=== PATIENT | male | born 1980 | race Caucasian/White ===

== ENCOUNTER 2024-09-06 | Emergency (ER) | payer BC ==
[2024-09-06] MEDS ORDERED: hydrALAZINE 20 MG/ML VIAL ONE (00:50)
[2024-09-06 01:06] LABS: #Basophils 0.09 10x3/uL (0.0-0.2); #Eosinophils 0.14 10x3/uL (0.0-0.7); #Monocytes 0.99 10x3/uL (0.11-0.59); #Neutrophils 7.94 10x3/uL (1.40-6.50); %Basophils 0.8 % (0.0-1.0); %Eosinophils 1.2 % (0.0-10.0); %Lymphocytes 21.7 % (21.0-51.0); %Monocytes 8.4 % (0.0-10.0); %Neutrophils 67.6 % (42.0-75.0); Hematocrit 46.1 % (42.0-52.0); Hemoglobin 15.5 g/dL (14.0-18.0); Mean Corpuscular HGB CONC 33.6 g/dL (32.0-36.0); Mean Corpuscular Hemoglobin 30.1 pg (27.0-31.0); Mean Corpuscular Volume 89.5 fL (78.0-98.0); Mean Platelet Volume 10.5 fL (7.4-10.4); Platelet Count 239 10x3/uL (130-400); RBC Distribution Width 13.3 % (11.5-14.5); Red Blood Cell (RBC) Count 5.15 mill/uL (4.70-6.10); White Blood Cell (WBC) Count 11.74 10x3/uL (4.8-10.8)
[2024-09-06] MEDS ORDERED: Oxymetazoline HCl 0.05% (30 ML BOT) ONE (01:31)
[2024-09-06 01:34] LABS: ALT (SGPT) 17 U/L (Less than 45); AST (SGOT) 26 U/L (11-34); Alkaline Phosphatase 66 U/L (40-110); Anion Gap 11 mmol/L (10-20); BUN (Urea Nitrogen) 23 mg/dL (8.9-20.6); Bilirubin, Total 0.4 mg/dL (0.3-1.2); Calc. Creatinine Clearance 0 mL/min (70-130); Calcium 9.4 mg/dL (7.8-10.44); Carbon Dioxide 25 mmol/L (22-29); Chloride 108 mmol/L (98-107); Estimated GFR 78; Globulin 3.5 g/dL (2.4-3.5); Glucose 98 mg/dL (70-105); Potassium 4.1 mmol/L (3.5-5.1); Protein, Total 7.5 g/dL (6.0-8.3); Sodium 140 mmol/L (136-145)
== END 2024-09-06 02:36 | disposition home or self-care (01) ==
LOC: ERS
DX: R04.0 Epistaxis (principal); I11.0 Hypertensive heart disease with heart failure; I50.9 Heart failure, unspecified; F17.290 Nicotine dependence, other tobacco product, uncomplicated
CPT/HCPCS: 80053; 85025; 96374; J0360

== ENCOUNTER 2025-03-02 21:49 | Inpatient (IN) | payer BC ==
[2025-03-02 22:46] LABS: #Basophils 0.08 10x3/uL (0.0-0.2); #Eosinophils 0.23 10x3/uL (0.0-0.7); #Monocytes 1.33 10x3/uL (0.11-0.59); #Neutrophils 7.70 10x3/uL (1.40-6.50); %Basophils 0.6 % (0.0-1.0); %Eosinophils 1.8 % (0.0-10.0); %Lymphocytes 26.4 % (21.0-51.0); %Monocytes 10.4 % (0.0-10.0); %Neutrophils 60.2 % (42.0-75.0); Hematocrit 47.4 % (42.0-52.0); Hemoglobin 16.0 g/dL (14.0-18.0); Mean Corpuscular Hemoglobin 28.7 pg (27.0-31.0); Mean Corpuscular Volume 85.1 fL (78.0-98.0); Platelet Count 261 10x3/uL (130-400); Red Blood Cell (RBC) Count 5.57 mill/uL (4.70-6.10); White Blood Cell (WBC) Count 12.80 10x3/uL (4.8-10.8)
[2025-03-02] MEDS ORDERED: niCARdipine 25 MG/10 ML SDV ONE (22:58)
[2025-03-02 23:00] LABS: Acetaminophen Less than 10 mcg/mL (Less than 10); Salicylate Less than 8.0 mg/dL (Less than 8.0)
[2025-03-02 23:01] LABS: ALT (SGPT) 31 U/L (Less than 45); AST (SGOT) 31 U/L (11-34); Albumin 3.6 g/dL (3.1-4.5); Alkaline Phosphatase 55 U/L (40-110); Anion Gap 17 mmol/L (10-20); BUN (Urea Nitrogen) 15 mg/dL (8.9-20.6); Bilirubin, Total 0.6 mg/dL (0.3-1.2); Calc. Creatinine Clearance 0 mL/min (70-130); Calcium 9.1 mg/dL (7.8-10.44); Carbon Dioxide 24 mmol/L (22-29); Chloride 108 mmol/L (98-107); Globulin 3.4 g/dL (2.4-3.5); Glucose 100 mg/dL (70-105); Potassium 4.1 mmol/L (3.5-5.1); Sodium 145 mmol/L (136-145)
[2025-03-03] MEDS ORDERED: niCARdipine 25 MG/10 ML SDV ONE (01:45)
[2025-03-03] MEDS ORDERED: niCARdipine 25 MG in Sodium Chloride 0.9% 250 ML 250 ML IVPB SCH (02:30)
[2025-03-03 05:10] VITALS: BMI 40.8
[2025-03-03] MEDS: Furosemide 40 MG (4 mL) VIAL SLOW IVP SCH (05:39)
[2025-03-03 07:53] LABS: Influenza A by NAA DETECTED (NotDetected); Influenza B by NAA Not Detected (NotDetected); RSV by NAA Not Detected (NotDetected); SARS-CoV-2 NAA Rapid Test Not Detected (NotDetected)
[2025-03-03] MEDS: Carvedilol 6.25 MG TAB PO SCH (09:32)
[2025-03-03] MEDS: Mupirocin 1 GM TUBE TP SCH (09:33)
[2025-03-03] MEDS: Sacubitril 24MG/Valsartan 26 MG TAB PO SCH (09:33)
[2025-03-03] MEDS: Enoxaparin 40 MG (0.4 mL) SYRINGE SC SCH (09:33)
[2025-03-03] MEDS: Carvedilol 25 MG TAB PO SCH (16:36)
[2025-03-03] MEDS: Spironolactone 25 MG TAB PO SCH (20:56)
[2025-03-03] MEDS: Benzonatate 100 MG CAP PO PRN (20:56)
[2025-03-03] MEDS: Melatonin 3 MG TAB PO SCH (23:29)
[2025-03-04 04:22] LABS: #Basophils 0.09 10x3/uL (0.0-0.2); #Eosinophils 0.29 10x3/uL (0.0-0.7); #Monocytes 2.03 10x3/uL (0.11-0.59); #Neutrophils 10.80 10x3/uL (1.40-6.50); %Basophils 0.5 % (0.0-1.0); %Eosinophils 1.7 % (0.0-10.0); %Lymphocytes 21.6 % (21.0-51.0); %Monocytes 11.9 % (0.0-10.0); %Neutrophils 63.2 % (42.0-75.0); Hematocrit 49.4 % (42.0-52.0); Hemoglobin 16.9 g/dL (14.0-18.0); Mean Corpuscular Hemoglobin 29.3 pg (27.0-31.0); Mean Corpuscular Volume 85.8 fL (78.0-98.0); Platelet Count 328 10x3/uL (130-400); Red Blood Cell (RBC) Count 5.76 mill/uL (4.70-6.10); White Blood Cell (WBC) Count 17.08 10x3/uL (4.8-10.8)
[2025-03-04 04:46] LABS: Anion Gap 17 mmol/L (10-20); BUN (Urea Nitrogen) 25 mg/dL (8.9-20.6); Calc. Creatinine Clearance 138 mL/min (70-130); Calcium 9.5 mg/dL (7.8-10.44); Carbon Dioxide 27 mmol/L (22-29); Cardiac Risk 4.9 (Less than 4.5); Chloride 102 mmol/L (98-107); Cholesterol 152 mg/dl (< 200 Desired); Glucose 99 mg/dL (70-105); HDL Cholesterol 31 mg/dL (>60 Neg Risk); LDL Cholesterol, Calculated 90 mg/dL; Potassium 3.8 mmol/L (3.5-5.1); Sodium 142 mmol/L (136-145); Triglycerides 153 mg/dL (Less than 150)
[2025-03-04 04:57] LABS: Free T4 (Free Thyroxine) 0.88 ng/dL (0.70-1.48); Thyroid Stimulating Hormone 0.3688 uIU/mL (0.35-4.94)
[2025-03-04] MEDS: Spironolactone 25 MG TAB PO SCH (09:03)
[2025-03-04] MEDS: Lisinopril 20 MG TAB PO SCH (21:17)
[2025-03-05 09:04] LABS: #Basophils 0.11 10x3/uL (0.0-0.2); #Eosinophils 0.14 10x3/uL (0.0-0.7); #Monocytes 1.60 10x3/uL (0.11-0.59); #Neutrophils 11.20 10x3/uL (1.40-6.50); %Basophils 0.7 % (0.0-1.0); %Eosinophils 0.9 % (0.0-10.0); %Lymphocytes 16.5 % (21.0-51.0); %Monocytes 10.0 % (0.0-10.0); %Neutrophils 70.3 % (42.0-75.0); Hematocrit 47.7 % (42.0-52.0); Hemoglobin 16.1 g/dL (14.0-18.0); Mean Corpuscular Hemoglobin 29.1 pg (27.0-31.0); Mean Corpuscular Volume 86.3 fL (78.0-98.0); Platelet Count 343 10x3/uL (130-400); Red Blood Cell (RBC) Count 5.53 mill/uL (4.70-6.10); White Blood Cell (WBC) Count 15.93 10x3/uL (4.8-10.8)
[2025-03-05 09:28] LABS: Anion Gap 17 mmol/L (10-20); BUN (Urea Nitrogen) 32 mg/dL (8.9-20.6); Calc. Creatinine Clearance 140 mL/min (70-130); Calcium 9.4 mg/dL (7.8-10.44); Carbon Dioxide 27 mmol/L (22-29); Chloride 102 mmol/L (98-107); Glucose 120 mg/dL (70-105); Potassium 3.8 mmol/L (3.5-5.1); Sodium 142 mmol/L (136-145)
[2025-03-05 12:34] LABS: ANA Symphony (Qualitative) Negative (Negative); ANA Symphony (Quantitative) 0.4 Ratio (< 0.7 Negative); dsDNA IgG Antibody 1.2 IU/mL (<10 Negative)
[2025-03-05 12:53] LABS: Thyroid Peroxidase IgG Ab 4.0 IU/mL (<25 Normal)
[2025-03-05 16:31] VITALS: BP 134/72; TEMP 97.9
[2025-03-06] MEDS ORDERED: PNEUMOC 20-VAL CONJ-DIP CRM/PF 0.5 ML SYRINGE IM ONE (09:00)
== END 2025-03-05 18:00 | disposition home or self-care (01) | DRG 280 ==
LOC: ERS 21:49 → CCU 03-03 01:31 → 2NO 03-03 12:48
PROVIDERS: ADMIT Student in an Organized Health Care Education/Training Program; ATTEND Internal Medicine
DX: I16.1 Hypertensive emergency (principal); I50.23 Acute on chronic systolic (congestive) heart failure; I21.A1 Myocardial infarction type 2; I42.8 Other cardiomyopathies; Z68.41 Body mass index [BMI] 40.0-44.9, adult; I11.0 Hypertensive heart disease with heart failure; F17.210 Nicotine dependence, cigarettes, uncomplicated; G47.33 Obstructive sleep apnea (adult) (pediatric); J10.1 Influenza due to other identified influenza virus with other respiratory manifestations; E66.01 Morbid (severe) obesity due to excess calories; Z88.8 Allergy status to other drugs, medicaments and biological substances; Z86.73 Personal history of transient ischemic attack (TIA), and cerebral infarction without residual deficits
CPT/HCPCS: 36415; 71045; 71250; 80048; 80053; 80061; 80307; 83605; 83880; 84439; 84443; 84481; 84484; 85025; 86038; 86225; 86376; 86800; 87040; 87428; 87637; 93005; 93306; 96365; 96366; J1650; J1940; J2060; U0002